=== PATIENT | male | born 1990 | race Caucasian/White ===

== ENCOUNTER → 2017-03-01 | Outpatient (CLI) | payer OTHER ==
--- NOTE | 2017-03-01 14:54 | KCIC ---
PROCEDURE Three-view right foot HISTORY Pain at the base of the right 3rd toe. Injury running 6 months ago. COMPARISON None FINDINGS Focal sclerosis at the distal phalanx of the 3rd toe, compatible with a bone island. Another area of sclerosis at the middle phalanx of the 5th toe, compatible with a bone island. No evidence of acute fracture. No aggressive bone destruction. Joint spaces and alignment are maintained. Soft tissues appear unremarkable. IMPRESSION No acute fracture or dislocation. Electronically signed by: Gaudencio Sanchez MD (March 01, 2017 14:53:04)
== END | disposition home or self-care (01) ==
LOC: KCIC 14:21
PROVIDERS: ATTEND Family Medicine
DX: M79.671 Pain in right foot (principal)
CPT/HCPCS: 73630